=== PATIENT | female | born 1960 | race Caucasian/White ===

== ENCOUNTER 2025-02-18 18:54 | Emergency (ER) | payer MEDICARE, MEDICAID | END 2025-02-18 20:04 | disposition home or self-care (01) | LOC: JD.ED 18:54 | DX: T17.800A Unspecified foreign body in other parts of respiratory tract causing asphyxiation, initial encounter (principal); G40.909 Epilepsy, unspecified, not intractable, without status epilepticus; F03.C0 Unspecified dementia, severe, without behavioral disturbance, psychotic disturbance, mood disturbance, and anxiety; Z86.16 Personal history of COVID-19; W44.9XXA Unspecified foreign body entering into or through a natural orifice, initial encounter | CPT/HCPCS: 71045; 71045-26; 99283; 99285 ==